=== PATIENT | male | born 1995 | race Caucasian/White ===

== ENCOUNTER 2024-08-11 18:04 | Emergency (ER) | payer BC ==
[2024-08-11] MEDS ORDERED: Ibuprofen 200 MG TAB ONE (18:25)
[2024-08-11] MEDS ORDERED: predniSONE 20 MG TAB ONE (19:50)
[2024-08-11] MEDS ORDERED: Ipratropium/Albuterol 3 ML NEB ONE (19:53)
== END 2024-08-11 20:48 | disposition home or self-care (01) ==
LOC: CSHERS 18:04
DX: J42 Unspecified chronic bronchitis (principal); Z55.0 Illiteracy and low-level literacy
CPT/HCPCS: 71045; 87428; 94640; 94760; J7512; J7620